=== PATIENT | female | born 1975 | race Caucasian/White ===

== ENCOUNTER 2016-09-02 20:33 | Outpatient (CLI) | payer SELFPAY ==
[2016-09-02 20:58] VITALS: BP 128/63
== END 2016-09-02 20:45 | disposition home or self-care (01) ==
LOC: LDOP 20:33
PROVIDERS: ATTEND Obstetrics & Gynecology
DX: O09.522 Supervision of elderly multigravida, second trimester (principal); O36.8120 Decreased fetal movements, second trimester, not applicable or unspecified; Z3A.24 24 weeks gestation of pregnancy
CPT/HCPCS: 59025; 99201; G0463

== ENCOUNTER 2016-09-27 20:00 | Emergency (ER) | payer MEDICAID ==
[~2016-09-27] VITALS: Ht 152.4 cm; Wt 78.0 kg
[2016-09-27 21:50] VITALS: BP 128/68
== END 2016-09-27 23:05 | disposition home or self-care (01) ==
LOC: ED 22:03
DX: B37.3 Candidiasis of vulva and vagina (principal); N30.90 Cystitis, unspecified without hematuria
CPT/HCPCS: 81001; 87210; 87808; 99284

== ENCOUNTER 2017-11-15 15:05 | Emergency (ER) | payer MEDICAID ==
[~2017-11-15] VITALS: Ht 152.4 cm; Wt 62.4 kg
[2017-11-15] MEDS ORDERED: ACETAMINOPHEN 325 MG TABLET PO ONE (16:30)
[2017-11-15] MEDS ORDERED: OMEP-110 PO (16:34)
[2017-11-15 16:50] VITALS: BP 111/54
== END 2017-11-15 16:56 | disposition home or self-care (01) ==
LOC: ED 16:50
DX: O99.511 Diseases of the respiratory system complicating pregnancy, first trimester (principal); J02.9 Acute pharyngitis, unspecified; Z3A.10 10 weeks gestation of pregnancy
CPT/HCPCS: 71046; 99284